=== PATIENT | male | born 1965 | race Caucasian/White ===

== ENCOUNTER 2018-02-05 05:38 | Day surgery (SDC) | payer SELFPAY ==
[2018-02-05] MEDS ORDERED: LR 1,000 ML IV ×2 (06:00→10:45)
[2018-02-05] MEDS ORDERED: ONDANSETRON 4MG/2ML VIAL (J2405) As Ordered (06:05)
[2018-02-05] MEDS ORDERED: LIDOCAINE 2% INJ 100 MG/5 ML SDV (FOR ANES.) As Ordered (06:05)
[2018-02-05] MEDS ORDERED: KETOROLAC 60 MG/2 ML VIAL (J1885) As Ordered (06:05)
[2018-02-05] MEDS ORDERED: ROCURONIUM BROMIDE 50 MG/5 ML VIAL As Ordered ×2 (06:05→09:30)
[2018-02-05] MEDS ORDERED: dexameTHASONE 4 MG/ML 1ML VIAL (J1100) As Ordered (06:05)
[2018-02-05] MEDS ORDERED: PROPOFOL 200 MG/20 ML VIAL As Ordered (06:05)
[2018-02-05] MEDS ORDERED: fentaNYL 250 MCG/5 ML INJECTION (J3010) As Ordered (06:06)
[2018-02-05] MEDS ORDERED: MIDAZOLAM INJ 2 MG/2 ML VIAL (J2250) As Ordered (06:06)
[2018-02-05] MEDS: BUPIVACAINE/EPIN 0.25% 30 ML VIAL As Ordered (09:30)
[2018-02-05] MEDS ORDERED: SUGAMMADEX SODIUM 500 MG/5 ML VIAL (BRIDION) As Ordered (09:53)
[2018-02-05] MEDS ORDERED: fentaNYL 100 MCG/2 ML INJECTION (J3010) As Ordered (10:21)
[2018-02-05] MEDS ORDERED: PERCOCET 5MG/325MG TAB As Ordered (10:21)
[2018-02-05] MEDS: PERCOCET 5MG/325MG TAB PO ×2 (10:25→10:55)
[2018-02-05] MEDS: fentaNYL 100 MCG/2 ML INJECTION (J3010) IV ×4 (10:25→10:42)
[2018-02-05] MEDS ORDERED: METOCLOPRAMIDE INJ 10MG/2ML VIAL (J2765) IV (10:45)
[2018-02-05] MEDS ORDERED: ONDANSETRON 4MG/2ML VIAL (J2405) IV (10:45)
[2018-02-05] MEDS ORDERED: NORCO, ANEXSIA 5/325MG TABLET (HYDROcodone/ACETAMINOPHEN) PO (10:45)
== END 2018-02-05 14:45 | disposition home or self-care (01) ==
LOC: M SDC 05:38
DX: K40.90 Unilateral inguinal hernia, without obstruction or gangrene, not specified as recurrent (principal); K21.9 Gastro-esophageal reflux disease without esophagitis; F41.9 Anxiety disorder, unspecified; F32.9 Major depressive disorder, single episode, unspecified; Z79.899 Other long term (current) drug therapy; F17.220 Nicotine dependence, chewing tobacco, uncomplicated
CPT/HCPCS: 49650

== ENCOUNTER 2020-03-02 18:04 | Inpatient (IN) | payer SELFPAY ==
[~2020-03-02] VITALS: Ht 167.6 cm; Wt 86.9 kg
[~2020-03-02 18:04] MED LIST: AMIT75TA PO; CITA20TA7 PO
--- NOTE | 2020-03-02 18:41 | REPVR ---
PROCEDURE INFORMATION: Exam: XR Chest, 1 View Exam date and time: 03/02/2020 6:34 PM Age: 54 years old Clinical indication: Cough and dyspnea; Additional info: Dyspnea/cough TECHNIQUE: Imaging protocol: XR of the chest Views: 1 view. COMPARISON: No relevant prior studies available. FINDINGS: Lungs: Small patchy infiltrate left lung base may represent atelectasis. A small focus of pneumonitis not excluded. Pleural space: Unremarkable. No pleural effusion. No pneumothorax. Heart/Mediastinum: Unremarkable. No cardiomegaly. Bones/joints: Unremarkable. IMPRESSION: Small patchy infiltrate left lung base may represent atelectasis. A small focus of pneumonitis not excluded. Electronically signed by: Doug Mike On 03/02/2020 18:41:05 PM
[2020-03-02] MEDS ORDERED: ACETAMINOPHEN 325 MG TAB PO ONE (19:00)
[2020-03-02] MEDS ORDERED: NS 1,000 ML IV ONE (19:00)
[2020-03-02 20:00] LABS: BASO % 0.3 % (0.0-1.0); HEMATOCRIT 44.3 % (42.0-52.0); LYMPH # 0.7 10^3/uL (1.5-5.0); LYMPH % 18.6 % (24.0-44.0); MEAN CORPUSCULAR HGB CONC 33.9 g/dl (32.0-36.5); MEAN CORPUSCULAR VOLUME 88.6 fl (80.0-96.0); MONO # 0.3 10^3/uL (0.0-0.8); MONO % 9.1 % (0.0-5.0); NEUTROPHILS # 2.5 10^3/uL (1.5-8.5); NEUTROPHILS % 71.4 % (36.0-66.0); PLATELET COUNT, AUTOMATED 155 10^3/uL (150-450); WHITE BLOOD COUNT 3.5 10^3/uL (4.0-10.0)
[2020-03-02 20:35] LABS: ALBUMIN 3.2 GM/DL (3.2-5.2); ALT/SGPT 42 U/L (12-78); BILIRUBIN,DIRECT 0.1 MG/DL (0.0-0.2); BILIRUBIN,TOTAL 0.4 MG/DL (0.2-1.0); BLOOD UREA NITROGEN 14 MG/DL (7-18); CALCIUM LEVEL 8.1 MG/DL (8.5-10.1); CARBON DIOXIDE LEVEL 33 MEQ/L (21-32); CHLORIDE LEVEL 96 MEQ/L (98-107); CK-MB VALUE MASS < 1.0 NG/ML (<3.6); CPK CREATINE PHOSPHOKINASE 118 U/L (39-308); CREATININE FOR GFR 1.26 MG/DL (0.70-1.30); GLOMERULAR FILTRATION RATE > 60.0 (>56); GLUCOSE, FASTING 101 MG/DL (70-100); MB/CK RELATIVE INDEX 0.85 (< OR =4); NT-PRO BNP 9 PG/ML (<125); POTASSIUM SERUM 3.9 MEQ/L (3.5-5.1); SODIUM LEVEL 135 MEQ/L (136-145); TOTAL PROTEIN 7.2 GM/DL (6.4-8.2); TROPONIN I < 0.02 NG/ML (< 0.10)
--- NOTE | 2020-03-02 23:27 | HPEPDOC ---
General Date of Admission 03/02/20 Date of Service: Mar 02, 2020 Chief Complaint The patient is a 54-year-old male admitted with a reason for visit of Dehydrated. Source: Patient Exam Limitations: No limitations Timing/Duration: Day(s) Severity: Moderate Associated Symptoms: Shortness of breath History of Present Illness Patient's 54 years old male with past medical history of anxiety, depression presented hospital with increased shortness of breath. Patient stated that for 5-6 days he has been having cough with generalized weakness. Today his symptoms became worse. In ER patient was found to have positive test for COVID19. Patient was found to have fever of 100.8, White blood count 3.5, chest x-ray showed Small patchy infiltrate left lung base may represent atelectasis. A small focus of pneumonitis not excluded. Home Medications Scheduled Amitriptyline HCl (Amitriptyline HCl) 75 Mg Tab, 75 MG PO QPM, (Reported) Allergies Coded Allergies: No Known Allergies (Unverified , 03/02/20) Past Medical History Medical History Depression, anxiety Family History I personally reviewed family history And found not pertinent Social History * Smoker: Denies Alcohol: Denies Drugs: denies Patient is Gnosticism A-FIB/CHADSVASC A-FIB History Current/History of A-Fib/PAF?: No Current PO Anticoag Therapy: No Review of Systems Constitutional: Reports: Chills, Fever, Fatigue Eyes: Denies: Pain ENT: Denies: Head Aches Skin: Denies: Rash, Lesions Pulmonary: Reports: Dyspnea, Cough Cardiovascular: Denies: Chest Pain, Palpitations Gastrointestinal: Denies: Nausea, Vomiting Genitourinary: Denies: Dysuria, Frequency Hematologic: Denies: Bruising Endocrine: Denies: Polydipsia, Polyphagia Musculoskeletal: Denies: Neck Pain, Back Pain Neurological: Denies: Weakness Psych: Reports: Mood Normal Physical Examination General Exam: Positive: Alert, Cooperative Eye Exam: Positive: PERRLA ENT Exam: Positive: Atraumatic Neck Exam: Positive: Supple; Negative: JVD Chest Exam: Positive: Rhonchi Heart Exam: Positive: Rate Normal Telemetry: Positive: No significant arrhythmia Abdomen Exam: Positive: Normal bowel sounds Extremity Exam: Negative: Clubbing, Cyanosis Skin Exam: Positive: Nl turgor and temperature Neuro Exam: Positive: Strength at 5/5 X4 ext, Cranial Nerves 3-12 NL Psych Exam: Positive: Mental status NL Vital Signs Vital Signs Date Time Temp Pulse Resp B/P (MAP) Pulse Ox O2 Delivery O2 Flow Rate FiO2 03/02/20 22:49 83 96 Nasal Cannula 2.0 03/02/20 22:19 18 03/02/20 21:30 99.1 03/02/20 20:30 105/64 (78) Laboratory Data Labs 24H Laboratory Tests 2 03/02/20 19:26: Immature Granulocyte % (Auto) 0.6, Neutrophils (%) (Auto) 71.4H, Lymphocytes (%) (Auto) 18.6L, Monocytes (%) (Auto) 9.1H, Eosinophils (%) (Auto) 0.0, Basophils (%) (Auto) 0.3, Neutrophils # (Auto) 2.5, Lymphocytes # (Auto) 0.7L, Monocytes # (Auto) 0.3, Eosinophils # (Auto) 0.0, Basophils # (Auto) 0.0, Nucleated Red Blood Cells % (auto) 0.0, Anion Gap 6L, Glomerular Filtration Rate > 60.0, Lactic Acid Level 1.0, Calcium Level 8.1L, Total Bilirubin 0.4, Direct Bilirubin 0.1, Aspartate Amino Transf (AST/SGOT) 41H, Alanine Aminotransferase (ALT/SGPT) 42, Alkaline Phosphatase 73, Total Creatine Kinase 118, Creatine Kinase MB < 1.0, Creatine Kinase MB Relative Index 0.85, Troponin I < 0.02, CE-Qtc-Q-Type Natriuretic Peptide 9, Total Protein 7.2, Albumin 3.2, Albumin/Globulin Ratio 0.8 03/02/20 20:03: POC Glucose (Misc Panel) 103, POC Sodium (Misc Panel) 134L, POC Potassium (Misc Panel) 3.8, POC Chloride (Misc Panel) 92L, POC Total CO2 (Misc Panel) 31.0H, POC Blood Urea Nitrogen (Misc Panel 15, POC Ionized Calcium (Misc Panel) 4.3L, POC Creatinine (Misc Panel) 1.2, POC Hematocrit (Misc Panel) 46.0 03/02/20 20:06: POC Troponin I (Misc) 0.00 CBC/BMP Laboratory Tests 03/02/20 19:26 Microbiology Microbiology 10/16/20 Respiratory Virus Panel (PCR) ([facility]) - Final, Complete SARS-CoV-2 (COVID 19) 03/02/20 Blood Culture, Received Pending Assessment/Plan Patient's 54 years old male with past medical history of anxiety, depression presented hospital with increased shortness of breath. Patient stated that for 5-6 days he has been having cough with generalized weakness. Today his symptoms became worse. In ER patient was found to have positive test for COVID19. Patient was found to have fever of 100.8, White blood count 3.5, chest x-ray showed Sm all patchy infiltrate left lung base may represent atelectasis. A small focus of pneumonitis not excluded. Problems (1) Community acquired pneumonia Status: Acute Problem Text: Secondary to COVID 19 Patient currently on 2 L oxygen via nasal cannula I talked to Dr. Abdullahi she recommended Remdesevir if CRP and ferritin elevated We'll check CRP and ferritin X-ray showed left lower lobe infiltrate Ceftriaxone IV, azithromycin IV Inhaler Continue to monitor oxygenation Droplet precaution (2) COVID-19 Status: Acute Problem Text: Labs ordered according to COVID19 protocol Decadron Lovenox 40 mg twice a day Plan / VTE VTE Prophylaxis Ordered?: Yes CHERELLE VENEGAS DO Mar 02, 2020 23:27
[2020-03-03] VITALS (10 sets, daily range): BP systolic 89–114; BP diastolic 57–70; O2SAT 96–98
[2020-03-03] MEDS ORDERED: ENOXAPARIN 40MG/0.4ML SYRINGE (J1650 PER 10MG) SC ONE
[2020-03-03] MEDS: AZITHROMYCIN INJ 500 MG, VIAL MATE ADAPTER 1 EACH in D5W 250 ML IV SCH ×2 (00:59→23:16)
[2020-03-03 01:29] LABS: INR 0.99; PROTHROMBIN TIME 13.3 SECONDS (12.5-14.3)
[2020-03-03 01:33] LABS: D-DIMER QUANT 535.77 ng/ml (<500)
[2020-03-03] MEDS: ACETAMINOPHEN TAB 650MG DOSE (2X325MG) PO PRN ×2 (02:36→16:49)
[2020-03-03] MEDS: cefTRIAXone SOD 1 GM in D5W MINI-BAG PLUS 50 ML IV SCH (02:36)
[2020-03-03] MEDS ORDERED: diphenhydrAMINE 25MG CAP PO ONE (03:00)
[2020-03-03 03:03] LABS: APPEARANCE, URINE CLEAR (CLEAR); BACTERIA, URINE AUTO NEGATIVE (NEGATIVE); BILIRUBIN, URINE AUTO NEGATIVE (NEGATIVE); BLOOD, URINE BLOOD NEGATIVE (NEGATIVE); COLOR, URINE YELLOW (YELLOW); GLUCOSE, URINE (UA) AUTO NEGATIVE (NEGATIVE); KETONE, URINE AUTO NEGATIVE (NEGATIVE); LEUKOCYTE ESTERASE, URINE AUTO NEGATIVE (NEGATIVE); NITRITE, URINE AUTO NEGATIVE (NEGATIVE); PROTEIN, URINE AUTO 1+ mg/dL (NEGATIVE); RBC, URINE AUTO 0 /HPF (0-3); SPECIFIC GRAVITY URINE AUTO 1.011 (1.002-1.035); SQUAMOUS EPITHELIAL CELL UR AU 0 /HPF (0-6); UROBILINOGEN, URINE AUTO 0.2 mg/dL (0.0-2.0); WBC, URINE AUTO 1 /HPF (0-3)
[2020-03-03 03:10] LABS: ALBUMIN 2.9 GM/DL (3.2-5.2); ALT/SGPT 34 U/L (12-78); BILIRUBIN,DIRECT 0.1 MG/DL (0.0-0.2); BILIRUBIN,TOTAL 0.3 MG/DL (0.2-1.0); CK-MB VALUE MASS < 1.0 NG/ML (<3.6); CPK CREATINE PHOSPHOKINASE 102 U/L (39-308); FERRITIN 530 NG/ML (26-388); LDH LACTATE DEHYDROGENASE 259 U/L (87-241); MB/CK RELATIVE INDEX 0.98 (< OR =4); NT-PRO BNP 14 PG/ML (<125); TOTAL PROTEIN 6.4 GM/DL (6.4-8.2); TRIGLYCERIDES LEVEL 71 MG/DL (<150); TROPONIN I < 0.02 NG/ML (< 0.10)
[2020-03-03] MEDS ORDERED: IBUPROFEN 200MG TAB PO ONE (07:00)
--- NOTE | 2020-03-03 08:05 | ECGEPIP ---
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
[2020-03-03 08:06] LABS: HEMATOCRIT 41.3 % (42.0-52.0); HEMOGLOBIN 14.4 g/dl (13.5-17.5); LYMPH % 16.6 % (24.0-44.0); MEAN CORPUSCULAR HEMOGLOBIN 30.9 pg (27.0-33.0); MEAN CORPUSCULAR HGB CONC 34.9 g/dl (32.0-36.5); MEAN CORPUSCULAR VOLUME 88.6 fl (80.0-96.0); PLATELET COUNT, AUTOMATED 146 10^3/uL (150-450); RED BLOOD COUNT 4.66 10^6/uL (4.30-6.10); WHITE BLOOD COUNT 4.3 10^3/uL (4.0-10.0)
[2020-03-03 08:07] LABS: BASO % 0.2 % (0.0-1.0); EOS % 0.2 % (0.0-3.0); LYMPH # 0.7 10^3/uL (1.5-5.0); MONO # 0.2 10^3/uL (0.0-0.8); NEUTROPHILS # 3.4 10^3/uL (1.5-8.5)
[2020-03-03 08:19] LABS: INR 1.02; PROTHROMBIN TIME 13.6 SECONDS (12.5-14.3)
[2020-03-03 08:20] LABS: PARTIAL THROMBOPLASTIN TIME 40.9 SECONDS (24.2-38.5)
[2020-03-03 08:25] LABS: ALBUMIN 2.7 GM/DL (3.2-5.2); ALT/SGPT 35 U/L (12-78); BILIRUBIN,DIRECT 0.1 MG/DL (0.0-0.2); BILIRUBIN,TOTAL 0.3 MG/DL (0.2-1.0); BLOOD UREA NITROGEN 11 MG/DL (7-18); CALCIUM LEVEL 7.3 MG/DL (8.5-10.1); CARBON DIOXIDE LEVEL 27 MEQ/L (21-32); CHLORIDE LEVEL 102 MEQ/L (98-107); CREATININE FOR GFR 1.04 MG/DL (0.70-1.30); FERRITIN 565 NG/ML (26-388); GLOMERULAR FILTRATION RATE > 60.0 (>56); GLUCOSE, FASTING 100 MG/DL (70-100); MAGNESIUM LEVEL 2.6 MG/DL (1.8-2.4); NT-PRO BNP 45 PG/ML (<125); POTASSIUM SERUM 3.8 MEQ/L (3.5-5.1); SODIUM LEVEL 136 MEQ/L (136-145); TOTAL PROTEIN 6.1 GM/DL (6.4-8.2)
[2020-03-03] MEDS: ENOXAPARIN 40MG/0.4ML SYRINGE (J1650 PER 10MG) SC SCH ×2 (09:00→20:07)
[2020-03-03] MEDS: dexameTHASONE 4 MG/ML 1ML VIAL (J1100 PER 1MG) IV SCH (09:00)
--- NOTE | 2020-03-03 13:27 | IPNPDOC ---
Text Note Date of Service The patient was seen on 03/03/20. NOTE Subjective: -No acute complaints -On 2L saturating well and desats to low 80s with ambulation -Walking around room Physical Examination General: Alert, Cooperative Eye: PERRLA, EOMI, anicteric ENT: Atraumatic, MMM Neck: no JVD Chest: Crackles throughout, rhonchi as well, no wheezing at this time Heart: RRR, no mrg Abdomen: Normal bowel sounds, soft, NTND Extremities: WWP, no LE edema Skin: Nl turgor and temperature, no rashes Neuro: Strength at 5/5 X4 ext, Cranial Nerves 3-12 NL, normal gait Psych: Aox3 Laboratory Data: Reviewed. See below for full details WBC 4.3 Hgb 14.4 platelets 146 na 136 K 3.8 Cr 1.04 fibrinogen 470 aPTT 40.9 Ferritin 565 Microbiology 03/02/20 Respiratory Virus Panel (PCR) ([facility]) - Final, Complete SARS-CoV-2 (COVID 19) 03/02/20 Blood Culture, NGTD Assessment 54 years old M with past medical history of anxiety and depression who presented hospital with increased shortness of breath over 5-6 days with a cough with generalized weakness and found to have COVID19 PNA. Plan COVID 19 PNA: -Supplemental O2 - currently on 2 L oxygen via nasal cannula -Dr. Abdullahi she recommended Remdesevir if CRP and ferritin sharply rise -f/u covid-19 associated labs -X-ray showed left lower lobe infiltrate -continue Ceftriaxone IV, azithromycin IV -continue mdis -Continuous pulse ox -Droplet precaution -dex 6mg QD -Lovenox 40 mg twice a day Dispo: inpatient VS,Gabriele, I+O VS, Gabriele, I+O Laboratory Tests 03/02/20 19:26 03/03/20 07:36 Vital Signs Date Time Temp Pulse Resp B/P (MAP) Pulse Ox O2 Delivery O2 Flow Rate FiO2 03/03/20 12:18 2.0 03/03/20 12:00 98.3 95 17 106/63 (77) 95 Nasal Cannula I&O- Last 24 Hours up to 6 AM 03/03/20 06:00 Intake Total 1305 ml Output Total 150 ml Balance 1155 ml CARROLL PRAKASH MD Mar 03, 2020 13:27
[2020-03-03] MEDS: CALCIUM CARBONATE 500 MG CHEW U/D PO PRN (16:36)
[2020-03-03] MEDS ORDERED: NS 1,000 ML IV ONE (17:30)
[2020-03-03] MEDS ORDERED: IBUPROFEN 400 MG TAB PO ONE (18:30)
[2020-03-03] MEDS: AMITRIPTYLINE 25 MG TAB PO SCH (20:06)
[2020-03-04] VITALS (9 sets, daily range): BP systolic 90–111; BP diastolic 55–68; O2SAT 92–100
[2020-03-04] MEDS: cefTRIAXone SOD 1 GM in D5W MINI-BAG PLUS 50 ML IV SCH (00:33)
--- NOTE | 2020-03-04 05:41 | ECGEPIP ---
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
[2020-03-04 07:07] LABS: HEPATITIS B CORE ANTIBODY IGG Negative (Negative)
[2020-03-04 07:47] LABS: BASO % 0.1 % (0.0-1.0); HEMATOCRIT 43.4 % (42.0-52.0); HEMOGLOBIN 14.4 g/dl (13.5-17.5); LYMPH # 0.8 10^3/uL (1.5-5.0); LYMPH % 11.2 % (24.0-44.0); MEAN CORPUSCULAR HEMOGLOBIN 30.1 pg (27.0-33.0); MEAN CORPUSCULAR HGB CONC 33.2 g/dl (32.0-36.5); MEAN CORPUSCULAR VOLUME 90.6 fl (80.0-96.0); MONO # 0.5 10^3/uL (0.0-0.8); MONO % 7.2 % (0.0-5.0); NEUTROPHILS # 5.7 10^3/uL (1.5-8.5); NEUTROPHILS % 81.1 % (36.0-66.0); PLATELET COUNT, AUTOMATED 176 10^3/uL (150-450); RED BLOOD COUNT 4.79 10^6/uL (4.30-6.10)
[2020-03-04 07:57] LABS: INR 0.9; PROTHROMBIN TIME 12.3 SECONDS (12.5-14.3)
[2020-03-04 08:29] LABS: ALBUMIN 2.8 GM/DL (3.2-5.2); ALT/SGPT 33 U/L (12-78); BILIRUBIN,DIRECT 0.1 MG/DL (0.0-0.2); BILIRUBIN,TOTAL 0.4 MG/DL (0.2-1.0); BLOOD UREA NITROGEN 10 MG/DL (7-18); CALCIUM LEVEL 8.1 MG/DL (8.5-10.1); CARBON DIOXIDE LEVEL 29 MEQ/L (21-32); CHLORIDE LEVEL 105 MEQ/L (98-107); CREATININE FOR GFR 1.01 MG/DL (0.70-1.30); FERRITIN 728 NG/ML (26-388); GLOMERULAR FILTRATION RATE > 60.0 (>56); GLUCOSE, FASTING 131 MG/DL (70-100); MAGNESIUM LEVEL 2.6 MG/DL (1.8-2.4); NT-PRO BNP 110 PG/ML (<125); POTASSIUM SERUM 4.7 MEQ/L (3.5-5.1); SODIUM LEVEL 139 MEQ/L (136-145); TOTAL PROTEIN 6.7 GM/DL (6.4-8.2)
[2020-03-04] MEDS: dexameTHASONE 4 MG/ML 1ML VIAL (J1100 PER 1MG) IV SCH (08:29)
[2020-03-04] MEDS: ENOXAPARIN 40MG/0.4ML SYRINGE (J1650 PER 10MG) SC SCH ×2 (08:30→19:35)
--- NOTE | 2020-03-04 10:39 | IPNPDOC ---
Text Note Date of Service The patient was seen on 03/04/20. NOTE Subjective: -No acute complaints -On 2L saturating well Objective: Physical Examination General: Alert, Cooperative Eye: PERRLA, EOMI, anicteric ENT: Atraumatic, MMM Neck: no JVD Chest: Crackles throughout, no wheezing at this time, speaking in full sentences, on 2L NC, episodic wet cough Heart: RRR, no mrg Abdomen: Normal bowel sounds, soft, NTND Extremities: WWP, no LE edema Skin: Nl turgor and temperature, no rashes Neuro: Strength at 5/5 X4 ext, Cranial Nerves 3-12 NL, normal gait Psych: Aox3 Laboratory Data: Reviewed. See below for full details WBC 7 Hgb 14.4 platelets 176 fibrinogen 505 BMP pending Microbiology 03/02/20 Respiratory Virus Panel (PCR) ([facility]) - Final, Complete SARS-CoV-2 (COVID 19) 03/02/20 Blood Culture, NGTD Assessment 54 years old M with past medical history of anxiety and depression who presented hospital with increased shortness of breath over 5-6 days with a cough with generalized weakness and found to have COVID19 PNA. Plan COVID 19 PNA: -Supplemental O2 - currently on 2 L oxygen via nasal cannula -Dr. Abdullahi recommended Remdesevir if CRP and ferritin sharply rise, thus far closely monitoring -f/u covid-19 associated labs -X-ray showed left lower lobe infiltrate -continue Ceftriaxone IV, azithromycin IV, day 2 -continue mdis -Continuous pulse ox -Droplet precaution -dex 6mg IV QD, day 2 -Lovenox 40 mg twice a day Dispo: inpatient. Doing cautiously well at this time. Is on/off O2 at most 2L thus far. Monitoring. VS,Fishbone, I+O VS, Fishbone, I+O Laboratory Tests 03/04/20 07:24 Vital Signs Date Time Temp Pulse Resp B/P (MAP) Pulse Ox O2 Delivery O2 Flow Rate FiO2 03/04/20 04:05 96.5 53 18 96/61 (73) 100 Nasal Cannula 2.0 I&O- Last 24 Hours up to 6 AM 03/04/20 06:00 Intake Total 3165 ml Output Total 1225 ml Balance 1940 ml CARROLL PRAKASH MD Mar 04, 2020 08:27
[2020-03-04] MEDS: ACETAMINOPHEN TAB 650MG DOSE (2X325MG) PO PRN (18:33)
[2020-03-04] MEDS: AMITRIPTYLINE 25 MG TAB PO SCH (19:35)
[2020-03-04] MEDS: AZITHROMYCIN INJ 500 MG, VIAL MATE ADAPTER 1 EACH in D5W 250 ML IV SCH (23:21)
[2020-03-05] VITALS (8 sets, daily range): BP systolic 98–142; BP diastolic 55–70; O2SAT 91–94
[2020-03-05] MEDS: cefTRIAXone SOD 1 GM in D5W MINI-BAG PLUS 50 ML IV SCH (00:32)
[2020-03-05] MEDS: ALBUTEROL 90 MCG/ACT 8GM HFA INHALER INH PRN ×2 (05:39→13:39)
[2020-03-05 06:47] LABS: BASO % 0.1 % (0.0-1.0); HEMATOCRIT 41.6 % (42.0-52.0); HEMOGLOBIN 14.1 g/dl (13.5-17.5); LYMPH # 1.4 10^3/uL (1.5-5.0); LYMPH % 10.1 % (24.0-44.0); MEAN CORPUSCULAR HEMOGLOBIN 30.5 pg (27.0-33.0); MEAN CORPUSCULAR HGB CONC 33.9 g/dl (32.0-36.5); MONO # 0.6 10^3/uL (0.0-0.8); NEUTROPHILS # 11.7 10^3/uL (1.5-8.5); NEUTROPHILS % 84.6 % (36.0-66.0); PLATELET COUNT, AUTOMATED 232 10^3/uL (150-450); RED BLOOD COUNT 4.62 10^6/uL (4.30-6.10); WHITE BLOOD COUNT 13.8 10^3/uL (4.0-10.0)
[2020-03-05 06:57] LABS: INR 0.92; PROTHROMBIN TIME 12.5 SECONDS (12.5-14.3)
[2020-03-05 06:58] LABS: PARTIAL THROMBOPLASTIN TIME 32.5 SECONDS (24.2-38.5)
[2020-03-05 07:17] LABS: ALBUMIN 2.7 GM/DL (3.2-5.2); ALT/SGPT 56 U/L (12-78); BILIRUBIN,DIRECT < 0.1 MG/DL (0.0-0.2); BILIRUBIN,TOTAL 0.2 MG/DL (0.2-1.0); BLOOD UREA NITROGEN 11 MG/DL (7-18); CALCIUM LEVEL 7.8 MG/DL (8.5-10.1); CARBON DIOXIDE LEVEL 27 MEQ/L (21-32); CHLORIDE LEVEL 106 MEQ/L (98-107); CREATININE FOR GFR 1.05 MG/DL (0.70-1.30); FERRITIN 712 NG/ML (26-388); GLOMERULAR FILTRATION RATE > 60.0 (>56); GLUCOSE, FASTING 145 MG/DL (70-100); MAGNESIUM LEVEL 2.1 MG/DL (1.8-2.4); NT-PRO BNP 195 PG/ML (<125); POTASSIUM SERUM 4.1 MEQ/L (3.5-5.1); SODIUM LEVEL 140 MEQ/L (136-145); TOTAL PROTEIN 6.5 GM/DL (6.4-8.2)
[2020-03-05] MEDS: dexameTHASONE 4 MG/ML 1ML VIAL (J1100 PER 1MG) IV SCH (08:25)
[2020-03-05] MEDS: ENOXAPARIN 40MG/0.4ML SYRINGE (J1650 PER 10MG) SC SCH (08:26)
[2020-03-05 11:49] LABS: HEPATITIS B SURFACE ANTIGEN NEGATIVE (NEGATIVE)
[2020-03-05 12:17] LABS: HIV 1&2 SCREEN CENTAUR NEGATIVE (NEGATIVE)
--- NOTE | 2020-03-05 13:05 | IPNPDOC ---
Text Note Date of Service The patient was seen on 03/05/20. NOTE Patient was seen and examined this morning.. He continues to be on 2 L of nasal cannula , states that he feels better and wants to go home Physical Examination General: Alert, Cooperative Eye: PERRLA, EOMI, anicteric ENT: Atraumatic, MMM Neck: no JVD Chest: Crackles throughout, no wheezing at this time, speaking in full sentences, on 2L NC, episodic wet cough Heart: RRR, no mrg Abdomen: Normal bowel sounds, soft, NTND Extremities: WWP, no LE edema Skin: Nl turgor and temperature, no rashes Neuro: Strength at 5/5 X4 ext, Cranial Nerves 3-12 NL, normal gait Psych: Aox3 Labs reviewed Radiology reviewed Assessment and plan He is a 54 years old M with past medical history of anxiety and depression who presented hospital with increased shortness of breath over 5-6 days with a cough with generalized weakness and found to have COVID19 PNA. 1. COVID 19 PNA: Continue supplemental oxygen and wean as required. Ferritin and CRP have been flat trend. No need of repeating as the patient is clinically improving. He is on Rocephin and azithromycin day 3. We will continue for 1 more day. Continue pulse ox. Dexamethasone 6 mg daily day 3. We will taper down tomorrow if he continues to improve. Lovenox has been de-escalate the only prophylactic dose of 40 daily. No need of full dose and accommodation. Possible discharge in the next 24-48 hours if he has been afebrile and being off the oxygen. VS,Fishbone, I+O VS, Fishbone, I+O Laboratory Tests 03/05/20 06:23 Vital Signs Date Time Temp Pulse Resp B/P (MAP) Pulse Ox O2 Delivery O2 Flow Rate FiO2 03/05/20 12:00 98.0 77 20 111/69 (83) 90 Room Air 03/05/20 08:00 2.0 I&O- Last 24 Hours up to 6 AM 03/05/20 06:00 Intake Total 1265 ml Output Total 1975 ml Balance -710 ml LULA CASAREZ MD Mar 05, 2020 13:05
[2020-03-05] MEDS: AMITRIPTYLINE 25 MG TAB PO SCH (20:09)
[2020-03-05] MEDS: AZITHROMYCIN INJ 500 MG, VIAL MATE ADAPTER 1 EACH in D5W 250 ML IV SCH (23:51)
[2020-03-06] VITALS (9 sets, daily range): BP systolic 101–114; BP diastolic 52–74; O2SAT 87–97
[2020-03-06] MEDS: cefTRIAXone SOD 1 GM in D5W MINI-BAG PLUS 50 ML IV SCH (01:18)
[2020-03-06 07:45] LABS: BASO % 0.2 % (0.0-1.0); HEMATOCRIT 41.5 % (42.0-52.0); LYMPH # 1.2 10^3/uL (1.5-5.0); LYMPH % 9.4 % (24.0-44.0); MEAN CORPUSCULAR HEMOGLOBIN 29.8 pg (27.0-33.0); MEAN CORPUSCULAR HGB CONC 33.7 g/dl (32.0-36.5); MEAN CORPUSCULAR VOLUME 88.3 fl (80.0-96.0); MONO # 0.9 10^3/uL (0.0-0.8); MONO % 6.9 % (0.0-5.0); NEUTROPHILS # 10.8 10^3/uL (1.5-8.5); NEUTROPHILS % 81.5 % (36.0-66.0); PLATELET COUNT, AUTOMATED 269 10^3/uL (150-450); WHITE BLOOD COUNT 13.2 10^3/uL (4.0-10.0)
[2020-03-06 08:00] LABS: INR 0.92; PROTHROMBIN TIME 12.5 SECONDS (12.5-14.3)
[2020-03-06 08:01] LABS: PARTIAL THROMBOPLASTIN TIME 28.1 SECONDS (24.2-38.5)
[2020-03-06 08:13] LABS: ALBUMIN 2.6 GM/DL (3.2-5.2); ALT/SGPT 111 U/L (12-78); BILIRUBIN,DIRECT 0.1 MG/DL (0.0-0.2); BILIRUBIN,TOTAL 0.4 MG/DL (0.2-1.0); BLOOD UREA NITROGEN 14 MG/DL (7-18); CALCIUM LEVEL 8.4 MG/DL (8.5-10.1); CARBON DIOXIDE LEVEL 25 MEQ/L (21-32); CHLORIDE LEVEL 106 MEQ/L (98-107); CREATININE FOR GFR 0.96 MG/DL (0.70-1.30); FERRITIN 729 NG/ML (26-388); GLOMERULAR FILTRATION RATE > 60.0 (>56); GLUCOSE, FASTING 97 MG/DL (70-100); NT-PRO BNP 127 PG/ML (<125); POTASSIUM SERUM 4.3 MEQ/L (3.5-5.1); SODIUM LEVEL 140 MEQ/L (136-145); TOTAL PROTEIN 6.6 GM/DL (6.4-8.2)
[2020-03-06] MEDS: ENOXAPARIN 40MG/0.4ML SYRINGE (J1650 PER 10MG) SC SCH (08:29)
[2020-03-06] MEDS: ALBUTEROL 90 MCG/ACT 8GM HFA INHALER INH PRN (09:23)
[2020-03-06] MEDS: dexameTHASONE 4 MG/ML 1ML VIAL (J1100 PER 1MG) IV SCH ×3 (10:26→22:41)
[2020-03-06] MEDS ORDERED: FUROSEMIDE 20MG/2ML VIAL (J1940) IV ONE (11:00)
[2020-03-06] MEDS ORDERED: SODIUM CHLORIDE 0.9% INJ 10 ML SYR IV ONE ×2 (12:00)
--- NOTE | 2020-03-06 12:00 | IPNPDOC ---
Text Note Date of Service The patient was seen on 03/06/20. NOTE Patient was seen and examined this morning. He has worsening hypoxic respiratory failure and currently is on 10 L high flow. He states his coughing is also increased Physical Examination General: Alert, Cooperative Eye: PERRLA, EOMI, anicteric ENT: Atraumatic, MMM Neck: no JVD Chest: Crackles throughout, no wheezing at this time, speaking in full sentences, on 2L NC, episodic wet cough Heart: RRR, no mrg Abdomen: Normal bowel sounds, soft, NTND Extremities: WWP, no LE edema Skin: Nl turgor and temperature, no rashes Neuro: Strength at 5/5 X4 ext, Cranial Nerves 3-12 NL, normal gait Psych: Aox3 Labs reviewed Radiology reviewed Assessment and plan He is a 54 years old M with past medical history of anxiety and depression who presented hospital with increased shortness of breath over 5-6 days with a cough with generalized weakness and found to have COVID19 PNA. 1. COVID 19 PNA: Worsening. Currently on 10 L of high flow nasal cannula. Ferritin and CRP have been flat trend. Given his increasing hypoxemia. He will be started on remdesevir 200 loading dose and then 100 daily for total of 5 days for now and which she'll be reassessed in case he needs more than 5 days. Lasix 20 mg IV given. 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 He is also on Rocephin and azithromycin day 4. We will continue for 1 more day. Continue pulse ox. Dexamethasone 2 mg every 6 started. We will taper down tomorrow once he continues to improve. Lovenox has been de-escalate the only prophylactic dose of 40 daily. No need of full dose . Disposition. Unknown at this time VS,Fishbone, I+O VS, Fishbone, I+O Laboratory Tests 03/06/20 07:15 Vital Signs Date Time Temp Pulse Resp B/P (MAP) Pulse Ox O2 Delivery O2 Flow Rate FiO2 03/06/20 09:20 92 High Flow Cannula 12.0 03/06/20 09:00 50 03/06/20 08:30 97.9 74 22 102/52 (69) I&O- Last 24 Hours up to 6 AM 03/06/20 06:00 Intake Total 1145 ml Output Total 1975 ml Balance -830 ml KICHLOO,LULA A. MD Mar 06, 2020 12:00
[2020-03-06] MEDS: REMDESIVIR (INVESTIGATIONAL) 200 MG in NS 210 ML IV ONE ×2 (12:47→20:33)
[2020-03-06] MEDS: AMITRIPTYLINE 25 MG TAB PO SCH (20:40)
[2020-03-07] VITALS (8 sets, daily range): BP systolic 106–120; BP diastolic 63–72; O2SAT 90–94
[2020-03-07] MEDS: AZITHROMYCIN INJ 500 MG, VIAL MATE ADAPTER 1 EACH in D5W 250 ML IV SCH ×2 (00:50→22:53)
[2020-03-07] MEDS: cefTRIAXone SOD 1 GM in D5W MINI-BAG PLUS 50 ML IV SCH (02:38)
[2020-03-07] MEDS: dexameTHASONE 4 MG/ML 1ML VIAL (J1100 PER 1MG) IV SCH ×2 (03:27→09:49)
--- NOTE | 2020-03-07 07:19 | IPNPDOC ---
Text Note Date of Service The patient was seen on 03/07/20. NOTE Subjective: Patient was seen and examined this morning at bedside. Patient tells me that his breathing feels like it's getting a little worse than yesterday. He hasn't been using his incentive spirometer. I had a lengthy conversation with him today about goals of care and CODE STATUS. Patient decided he would like to try BiPAP if needed but does not wish to be resuscitated or intubated. A molst form was completed today. Tells me has been trying to walk around his room but he becomes very short of breath when he does. Objective: Constitutional: Awake and alert, in no apparent distress. On 12 L of high flow oxygen ENT: Sclera are clear Respiratory: Lungs diminished breath sounds bilaterally with some mild crackles at bases. No respiratory distress. No use of accessory muscles. Cardiovascular: RRR S1 and S2 are normal, no murmur Gastrointestinal: Abdomen is soft, non distended, non tender, BS present. Musculoskeletal: RUE 5/5, LUE 5/5, BLE 5/5 no lower extremity edema Neurologic: No focal neurological deficit. Mental Status: A&O x3, normal affect Skin: Warm, dry Assessment/plan: 54 years old M with past medical history of anxiety and depression who presented hospital with increased shortness of breath over 5-6 days with a cough with generalized weakness and found to have COVID19 PNA. # COIVD 19 PNA: sepsis on admission in the setting of covid pna. Rocephin & Azithromycin. Per Palm recs switched dexamethasone to hydrocortisone 50mg q8h and back on therapeutic Lovenox 40 BID. started on remdesevir 200 loading dose then 100qd for 5 day. Repeat CRP, d-dimer, obtain troponin. CXR and ABG pending. IV lasix pushes PRN to keep him on flash drier operator side. Albuterol scheduled. # Acute hypoxic respiratory failure: O2 sat 84% on admission with increasing oxygen demands. Continuous pulse ox. Pulmonology consulted. Incentive spirometry. Percocet help with breathing pain to encourage ambulation. On 12 L h igh flow oxygen. A Yousef Hospitalist VS,Praveen, I+O VS, Gabriele, I+O Vital Signs Date Time Temp Pulse Resp B/P (MAP) Pulse Ox O2 Delivery O2 Flow Rate FiO2 03/07/20 04:00 90 High Flow Cannula 12.0 03/07/20 03:32 96.6 61 20 120/72 (88) 03/06/20 09:00 50 I&O- Last 24 Hours up to 6 AM 03/07/20 06:00 Intake Total 2385 ml Output Total 2475 ml Balance -90 ml JAIR COLES MD Mar 07, 2020 07:19
[2020-03-07] MEDS: ENOXAPARIN 40MG/0.4ML SYRINGE (J1650 PER 10MG) SC SCH ×2 (09:49→20:19)
[2020-03-07] MEDS ORDERED: SODIUM CHLORIDE 0.9% INJ 10 ML SYR IV SCH ×3 (11:00→22:00)
[2020-03-07 11:47] LABS: BASO # 0.1 10^3/uL (0.0-0.2); BASO % 0.9 % (0.0-1.0); HEMOGLOBIN 13.8 g/dl (13.5-17.5); LYMPH # 1.1 10^3/uL (1.5-5.0); LYMPH % 9.1 % (24.0-44.0); MEAN CORPUSCULAR HGB CONC 33.7 g/dl (32.0-36.5); MEAN CORPUSCULAR VOLUME 89.1 fl (80.0-96.0); MONO # 0.8 10^3/uL (0.0-0.8); MONO % 6.6 % (0.0-5.0); NEUTROPHILS # 9.9 10^3/uL (1.5-8.5); NEUTROPHILS % 79.1 % (36.0-66.0); PLATELET COUNT, AUTOMATED 331 10^3/uL (150-450); WHITE BLOOD COUNT 12.5 10^3/uL (4.0-10.0)
[2020-03-07 11:58] LABS: INR 0.94; PARTIAL THROMBOPLASTIN TIME 26.9 SECONDS (24.2-38.5); PROTHROMBIN TIME 12.8 SECONDS (12.5-14.3)
[2020-03-07] MEDS ORDERED: REMDESIVIR (INVESTIGATIONAL) 100 MG in NS 230 ML IV SCH ×2 (12:00→21:00)
[2020-03-07] MEDS ORDERED: SODIUM CHLORIDE NASAL 0.65% SPRAY BTL (OCEAN) PRN (14:30)
[2020-03-07 14:50] LABS: ABG BASE EXCESS -1.7 (-2.0-2.0); ABG O2 SATURATION 92.3 % (95.0-99.0); ABG PARTIAL PRESSURE CO2 30.3 mmHg (35.0-45.0); ABG PARTIAL PRESSURE O2 62.6 mmHg (75.0-100.0); ABG STANDARD HCO3 22.9 MEQ/L (22.0-26.0); ABG TOTAL CO2 21.9 MEQ/L (22.0-29.0); ABG pH (ARTERIAL) 7.458 UNITS (7.350-7.450)
[2020-03-07 15:12] LABS: ALBUMIN 2.7 GM/DL (3.2-5.2); ALT/SGPT 228 U/L (12-78); BILIRUBIN,DIRECT 0.2 MG/DL (0.0-0.2); BILIRUBIN,TOTAL 0.5 MG/DL (0.2-1.0); BLOOD UREA NITROGEN 20 MG/DL (7-18); C REACTIVE PROTEIN QUANTITATIV 2.11 MG/DL (0.00-0.30); CALCIUM LEVEL 8.6 MG/DL (8.5-10.1); CARBON DIOXIDE LEVEL 24 MEQ/L (21-32); CHLORIDE LEVEL 104 MEQ/L (98-107); CREATININE FOR GFR 0.91 MG/DL (0.70-1.30); FERRITIN 861 NG/ML (26-388); GLOMERULAR FILTRATION RATE > 60.0 (>56); GLUCOSE, FASTING 112 MG/DL (70-100); MAGNESIUM LEVEL 2.1 MG/DL (1.8-2.4); NT-PRO BNP 51 PG/ML (<125); POTASSIUM SERUM 4.4 MEQ/L (3.5-5.1); SODIUM LEVEL 137 MEQ/L (136-145); TOTAL PROTEIN 6.7 GM/DL (6.4-8.2); TROPONIN I < 0.02 NG/ML (< 0.10)
[2020-03-07] MEDS: ASPIRIN 81 MG ENTERIC TAB PO SCH (15:21)
[2020-03-07] MEDS: HYDROCORTISONE 100 MG/2 ML VIAL (J1720 PER 1) IV SCH ×2 (15:21→22:52)
[2020-03-07] MEDS: PERCOCET 5MG/325MG TAB PO PRN ×2 (15:22→20:42)
--- NOTE | 2020-03-07 16:12 | REP ---
INDICATION: COVID PNA COMPARISON: 03/02/2020 TECHNIQUE: Portable upright AP view of the chest FINDINGS: Mediastinum and cardiac silhouette are normal. Diffuse subtle bilateral reticulonodular infiltrates are appreciated and appear increased from prior examination. No focal consolidation. No obvious effusion. No pneumothorax. IMPRESSION: Scattered bilateral small infiltrates (left greater than right). <Electronically signed by Roge Hammonds > 03/07/20 0713
[2020-03-07 17:14] LABS: D-DIMER QUANT 596.22 ng/ml (<500)
[2020-03-07] MEDS: ALBUTEROL 90 MCG/ACT 8GM HFA INHALER INH SCH ×2 (19:46→20:17)
[2020-03-07] MEDS: AMITRIPTYLINE 25 MG TAB PO SCH (20:18)
[2020-03-07] MEDS: CALCIUM CARBONATE 500 MG CHEW U/D PO PRN (20:41)
[2020-03-08] VITALS: O2SAT 95
[2020-03-08] MEDS: ALBUTEROL 90 MCG/ACT 8GM HFA INHALER INH SCH ×5 (00:18→16:03)
[2020-03-08] MEDS: cefTRIAXone SOD 1 GM in D5W MINI-BAG PLUS 50 ML IV SCH (00:55)
[2020-03-08 01:27] VITALS: BP 108/70
[2020-03-08 04:00] VITALS: O2SAT 94
[2020-03-08] MEDS: HYDROCORTISONE 100 MG/2 ML VIAL (J1720 PER 1) IV SCH ×2 (06:12→16:41)
[2020-03-08 07:01] LABS: HEMATOCRIT 40.9 % (42.0-52.0); HEMOGLOBIN 13.9 g/dl (13.5-17.5); MEAN CORPUSCULAR HEMOGLOBIN 30.5 pg (27.0-33.0); MEAN CORPUSCULAR VOLUME 89.7 fl (80.0-96.0); PLATELET COUNT, AUTOMATED 381 10^3/uL (150-450); RED BLOOD COUNT 4.56 10^6/uL (4.30-6.10)
--- NOTE | 2020-03-08 07:08 | CR ---
DATE OF CONSULTATION: 03/07/2020 HISTORY OF PRESENT ILLNESS: Mr. Weinstein is a 54-year-old male with a past medical history of anxiety, depression and obesity who presented to the hospital with shortness of breath and cough. The patient noticed symptoms starting approximately five days prior to admission to the hospital of cough with generalized weakness as well as some subjective fevers and shortness of breath. He had worsening dyspnea and so had presented to the ED for evaluation. In the ED, the patient was febrile and noted to be positive for COVID-19. He was also hypoxic, requiring two liters nasal cannula oxygen supplementation. He was started on antibiotics for a possible superimposed bacterial pneumonia with ceftriaxone and azithromycin as well as dexamethasone given his hypoxia. The patient did have elevated CRP and ferritin although not severe. He was initially stable on his two liters nasal cannula oxygen for four days or so. Yesterday, he started having increasing oxygen requirements and he was started on remdesivir. The patient states in the past day or so, he has started having more dyspnea particularly with minimal exertion and he stated he has continued to also have episodes of chest pain which he states he did have at home but has been worsening in the midsternal region particularly when he would get up or attempt to ambulate around the room. He also notices the pain with coughing as well as a deep inspiration and he admits that he has not been using his incentive spirometer or active much in the room given his symptoms. He was trying to prone himself for a little bit during the day today. However, he states he does have difficulty due to neck discomfort as well as propping his head up with proning. PAST MEDICAL AND SURGICAL HISTORY: 1. Depression. 2. Anxiety. HOME MEDICATIONS: * Amitriptyline. ALLERGIES: No known drug allergies. SOCIAL HISTORY: The patient denies a history of alcohol use or nicotine use. He is Muslim. FAMILY HISTORY: Reviewed and no pertinent family history. PHYSICAL EXAMINATION: Vitals: Temperature 97.1. The patient was febrile for the first two days of admission and since then has been afebrile. Pulse72, respirations 24, blood pressure 106/63, O2 sat 9% on 12 liters a minute nasal cannula, in 3.2 liters, out 2.4 liters, negative 150 mL. General: Patient is an obese male, is lying in bed, is able to speak in complete sentences, does not appear to be using any accessory muscles for respiration. HEENT: Normocephalic, atraumatic. Most mucous membranes noted, Mallampati class 4. Neck: Supple, trachea is midline, no palpable cervical adenopathy. No JVD. Cardiovascular: Regular rate and rhythm, normal S1, S2, unable to appreciate any murmurs. Pulmonary: Diminished breath sounds bilaterally with a few rhonchi and crackles in the bases. Abdomen: Obese, soft, nontender, nondistended, no palpable hepatomegaly. Extremities: There is no lower extremity edema noted bilaterally. There is no calf tenderness bilaterally. LABORATORY DATA: WBC 12.5, hemoglobin 13.8, platelets 331. Chemistries: Sodium is 140, potassium 4.3, chloride 106, bicarb 25, BUN 14, creatinine 0.96, glucose 96. Calcium is 8.4. Magnesium is 2.0. Ferritin slightly trending up to 729. AST increased at 99, ALT increasing to 111, alk phos 71. BNP 127. Albumin is 2.6. Procalcitonin 0.07. Fibrinogen was 495. INR, PT and PTT within normal limits. Chest x-ray on admission 03-02-20 showed very small patchy infiltrate in the left base, atelectasis versus pneumonia. There are some mildly increased interstitial markings and low lung volumes noted. ASSESSMENT AND PLAN: Mr. Weinstein is a 54-year-old male with a history of anxiety, depression and obesity who presented with complaints of coughing and worsening dyspnea on exertion. The patient was found to be coronavirus positive and he was also noted on admission to be febrile as well as hypoxic, requiring initially two liters nasal cannula oxygen supplementation. The patient was admitted to our COVID isolation unit for COVID pneumonia. He was initially treated with antibiotics for possible superimposed bacterial pneumonia. He was also given dexamethasone given his hypoxic respiratory failure. His CRP and ferritin were mildly elevated on admission. The patient was doing well initially for the first three to four days of his admission. Yesterday, however, he started having increasing oxygen requirements and is now on 12 liters of nasal cannula oxygen supplementation. The patient has been reporting dyspnea with minimal exertion as well as continued chest pain in the midsternal region which is worse with exertion as well as with deep inspiration and coughing. He admits he has not been using his incentive spirometer and has been bed-bound mostly during his admission. Acute hypoxic respiratory failure: The patient does have coronavirus pneumonia. There is concern that he may be developing progression although he is not having significantly worsened CRP or ferritin. Suspect with his symptoms patient is having a component of splinting and atelectasis given his chest discomfort which is causing worsening hypoxia. He does have obesity which is also likely contributing to his atelectasis and hypoxemia. There is concern for possible PE as he is prothrombotic. He does not have lower extremity edema, however, or calf tenderness and he has not been tachycardic - Would repeat D-dimer and if very significantly elevated, would consider empiric anticoagulation. In the meantime given his obesity and prothrombotic state, would increase his prophylactic dose of Lovenox to 40 mg b.i.d. for the 0.5 mg/kg b.i.d. prophylactic dosing. - will also check troponins although acute coronary event is less likely. Cardiac complications are possible with coronavirus. will started the patient on low dose aspirin 81 mg as there are no contraindications - We will also repeat chest x-ray and will get an ABG. If the patient does have significant hypercarbia then he may require noninvasive positive pressure ventilation. His goals of care were updated today and he did have a MOLST form which states he is a DNR/DNI but he is willing to have a trial of noninvasive ventilation if needed. - We will start patient on pain medications with Percocet to help encourage increased use of his incentive spirometer. We also discussed with the patient about awake pronation and the protocol for awake proning with one hour prone and two hour supine for 6-8 cycles during the day while awake as tolerated. - We will continue with the high flow nasal cannula supplementation. We will start saline nasal spray and continue with the bulb humidifier to help with humidification. If he is requiring increasing amounts of oxygen supplementation, we would consider Vapotherm for humidification with improved comfort. We will continue to wean down his nasal cannula oxygen supplementation as tolerated. - Would continue patient with steroids. We will change him from dexamethasone to hydrocortisone. Would continue with remdesivir as well. Could consider adding tocilizumab if he does appear to have worsening cytokine storm. However, as of now, his ferritin is only mildly increased and CRP is improving. We will check a repeat CRP, however, as well and continue to monitor. - We will continue patient with bronchodilators with albuterol HFA q.4 hours schedule down. The patient may also benefit from Mucinex as well for pulmonary toilet as he does feel that he has some mucus that is difficult to expectorate at times. We will continue to monitor, however, and consider starting Mucinex if needed. - We will continue monitoring his LFTs while on remdesivir. He did have some slight increase which may be expected with the transaminitis. We will continue for now, though. However, we will continue to closely monitor his LFTs. DVT PROPHYLAXIS: Lovenox.. CODE STATUS: DNR/DNI with a trial of noninvasive ventilation. Continue isolation for coronavirus. MTDD
[2020-03-08 07:22] LABS: BLOOD UREA NITROGEN 20 MG/DL (7-18); C REACTIVE PROTEIN QUANTITATIV 1.19 MG/DL (0.00-0.30); CALCIUM LEVEL 8.4 MG/DL (8.5-10.1); CARBON DIOXIDE LEVEL 27 MEQ/L (21-32); CHLORIDE LEVEL 105 MEQ/L (98-107); CREATININE FOR GFR 0.97 MG/DL (0.70-1.30); GLOMERULAR FILTRATION RATE > 60.0 (>56); GLUCOSE, FASTING 124 MG/DL (70-100); POTASSIUM SERUM 4.6 MEQ/L (3.5-5.1); SODIUM LEVEL 138 MEQ/L (136-145)
--- NOTE | 2020-03-08 07:24 | IPNPDOC ---
Text Note Date of Service The patient was seen on 03/08/20. NOTE Subjective: Patient was seen and examined this morning at bedside. Tells me he's feeling much better than yesterday and Percocet is helping and he's been able to use the incentive spirometer much more frequently today. He's been trying to walk on his room but does still get short of breath when he tries to. Nurse tells me there was no overnight events. Objective: Constitutional: Awake and alert, in no apparent distress. On 4L o2 by [place] ENT: Sclera are clear Respiratory: Lungs diminished breath sounds bilaterally a little less diminished in yesterday no appreciable crackles today. No respiratory distress. No use of accessory muscles. Cardiovascular: RRR S1 and S2 are normal, no murmur Gastrointestinal: Abdomen is soft, non distended, non tender, BS present. Musculoskeletal: RUE 5/5, LUE 5/5, BLE 5/5 no lower extremity edema Neurologic: No focal neurological deficit. Mental Status: A&O x3, normal affect Skin: Warm, dry Assessment/plan: 54 years old M with past medical history of anxiety and depression who presented hospital with increased shortness of breath over 5-6 days with a cough with generalized weakness and found to have COVID19 PNA. # COIVD 19 PNA: sepsis on admission in the setting of covid pna. Rocephin & Azithromycin completed 5 day course last dose 03/07/2020. Per Rona newton switched dexamethasone to hydrocortisone 50mg q8h and can be switched to oral prednisone 40 mg daily to complete a 10 day total course upon discharge. On therapeutic Lovenox 40 BID. remdesevir 200 loading dose then 100qd for 5 day. Inflammatory markers stable or decreased. IV lasix pushes PRN to keep him on milk drier side. Albuterol scheduled. # Acute hypoxic respiratory failure: O2 sat 84% on admission with increasing oxygen demands. Continuous pulse ox. Pulmonology consulted. Incentive spirometry. Percocet helping to encourage use of incentive spirometer. On 4 L oxygen by nasal cannula. Disposition: Anticipate patient would be ready to go home in the coming days as long as his oxygen demands do not exceed 5 L of oxygen. We'll need to have home oxygen arranged for him. [facility] Praveen JIMÉNEZ, I+O VS, Fishbone, I+O Laboratory Tests 03/07/20 11:14 03/08/20 06:46 Vital Signs Date Time Temp Pulse Resp B/P (MAP) Pulse Ox O2 Delivery O2 Flow Rate FiO2 03/08/20 04:00 94 High Flow Cannula 6.0 03/08/20 01:27 96.3 53 15 108/70 (83) 03/06/20 09:00 50 I&O- Last 24 Hours up to 6 AM 03/08/20 06:00 Intake Total 1825 ml Output Total 2500 ml Balance -675 ml JAIR COLES MD Mar 08, 2020 07:24
[2020-03-08 08:54] LABS: ALBUMIN 2.7 GM/DL (3.2-5.2); ALT/SGPT 184 U/L (12-78); BILIRUBIN,DIRECT < 0.1 MG/DL (0.0-0.2); BILIRUBIN,TOTAL 0.4 MG/DL (0.2-1.0); TOTAL PROTEIN 6.6 GM/DL (6.4-8.2)
[2020-03-08] MEDS: ASPIRIN 81 MG ENTERIC TAB PO SCH (08:56)
[2020-03-08] MEDS: CALCIUM CARBONATE 500 MG CHEW U/D PO PRN (08:56)
[2020-03-08] MEDS: PERCOCET 5MG/325MG TAB PO PRN ×2 (08:57→18:36)
[2020-03-08] MEDS: ENOXAPARIN 40MG/0.4ML SYRINGE (J1650 PER 10MG) SC SCH (08:58)
[2020-03-08 09:00] VITALS: BP 101/55
--- NOTE | 2020-03-08 14:51 | IPN ---
DATE: 03/08/2020 Patient was seen and examined this morning during bedside rounds. Yesterday, patient was able to be weaned down from his nasal cannula oxygen supplementation at 12 liters/minute down to a low of 3 liters/minute. He did notice improvement with the Percocet in his chest pain and he was able to take deeper breaths with the incentive spirometer as well as able to cough up some mucus which he previously was unable to do due to the pain. He does continue to have shortness of breath particularly with limited exertion but he states in general he is feeling somewhat better today. Overnight, he did have increased nasal cannula oxygen supplementation up to 6 liters/minute. This morning, on room air he was saturating 86-88%. With talking, however, he did desaturate to around 83% on room air. He has not had any fevers overnight. He denies any abdominal pain, no nausea or vomiting, no lower extremity edema. PHYSICAL EXAMINATION: Vital signs: Temperature 96.3, pulse 53, respirations 15, blood pressure 108/70, oxygen saturation 93-97% on 4-6 liters/minute nasal cannula. Intake 1.6 liters, output 2.3 liters, net negative 640 mL. General: Patient is lying in bed, does not appear to be in any acute distress, is able to speak in complete sentences and is not using any accessory muscles for respiration. HEENT: Normocephalic, atraumatic. Pupils reactive to light bilaterally. There is moist mucous membranes noted. Mallampati is class IV. Neck is supple. Trachea is midline. There is no palpable cervical adenopathy, no jugular venous distension (JVD). Cardiovascular: Regular rate and rhythm, normal S1, S2, unable to appreciate any murmurs. Pulmonary: Diminished breath sounds bilaterally with few crackles in the bases. No wheezing or rhonchi. Abdomen: Obese, soft, nontender, nondistended, no palpable hepatomegaly. Extremities: There is no lower extremity edema noted bilaterally. LABORATORIES: WBC 13.0, hemoglobin 13.9, platelets 381. Chemistry: Sodium 138, potassium 4.6, chloride 105, bicarbonate 27, BUN 20, creatinine 0.97, glucose 124, calcium 8.4. AST/ALT yesterday was 142 and 228. CRP trending down to 1.19. D-dimer trending down to 494.79. ABG yesterday, pH 7.458, pCO2 of 30.3, pO2 of 62.6. Procalcitonin the other day was 0.07. IMAGING: Chest x-ray yesterday showed mild bilateral subtle reticular nodular and interstitial infiltrates which appear relatively unchanged from previous. There is no focal consolidation. There is no evidence of obvious pleural effusion. There is improved inspiratory effort. ASSESSMENT AND PLAN: Mr. Weinstein is a 54-year-old male with a past medical history of anxiety and depression who presented with complaints of worsening dyspnea as well as cough. Patient was found to be positive for Coronavirus and he was hypoxic on admission requiring nasal cannula oxygen supplementation. Patient was admitted for COVID pneumonia to our COVID isolation unit. He was initially given antibiotics for possible bacterial pneumonia as well as steroids for his acute hypoxemic respiratory failure. Patient was noted to have increasing oxygen requirements a few days after his admission and was therefore started on Remdesivir as well. Yesterday, patient was seen and had been complaining of chest discomfort worse with deep inspiration as well as coughing and he admittedly had not been using his incentive spirometer and had been mostly bed bound. Patient was given pain control and incentive spirometer as well as awake proning and had improvement in his oxygenation. Acute hypoxemic respiratory failure. Patient does have Coronavirus pneumonia. His worsening hypoxia however is thought to be in the setting of splinting and atelectasis in the setting of his chest pain. He did have a repeat chest x-ray done which, as per the radiologist, had showed some mildly increased interstitial reticular nodular opacities bilaterally although this is very subtle and does not appear significantly worsened from his admission. Patient also had repeat brain natriuretic peptide (BNP) checked and does not appear to be significantly elevated and so pulmonary edema is also less likely. He did also have an arterial blood gas (ABG) done which did not show any significant hypercarbia. He also had a repeat D-dimer done which has been trending down and acute pulmonary embolus (PE) is less likely. With pain control and using incentive spirometer as well as awake proning he has had improvement in his oxygenation and he has been able to wean down on his nasal cannula supplementation. - Will continue pain control with Percocet as needed. Continue to encourage patient to use his incentive spirometer and the awake proning as previously instructed. - Patient has been on ceftriaxone and azithromycin since his admission. His repeat procalcitonin is negative and he has completed at least 5 days of antibiotics. Therefore, would discontinue antibiotics at this time. - Will continue with steroids with hydrocortisone. Can consider transitioning to by mouth prednisone when patient is close to discharge. Would treat for a 10 day course. - Patients inflammatory markers appear to be improving in terms of his C- reactive protein (CPR) as well as his D-dimer. His ferritin is still elevated and slightly increased, however he has been afebrile and suspect in general he is improving. He is on Remdesivir and he does have some increased transaminitis. Would closely monitor and consider discontinuing Remdesivir if he has worsening transaminitis. In either case, the course of treatment would be 5 days for the Remdesivir. - Will continue weaning patient down on nasal cannula oxygen supplementation. He likely will need increased supplementation with exertion but we did discuss if he is able to be weaned down to an acceptable level then he can potentially go home with oxygen supplementation and with isolation. - Continue with bronchodilators every 4 hours. Deep venous thrombosis (DVT) prophylaxis. Lovenox prophylaxis with the twice a day dosage. CODE STATUS: DO NOT RESUSCITATE/DO NOT INTUBATE with a trial of noninvasive ventilation. Please do not hesitate to call with any further questions or concerns. MTDD
[2020-03-08 15:00] VITALS: BP 113/62
[2020-03-08] MEDS ORDERED: PERCOCET PO (16:56)
[2020-03-08] MEDS ORDERED: VENTAER INH (16:56)
[2020-03-08] MEDS ORDERED: ACET1TAB55 PO (16:56)
[2020-03-08] MEDS ORDERED: ASPI81TAEC PO (16:56)
--- NOTE | 2020-03-08 17:07 | DS.PDOC ---
Discharge Summary General Date of Admission Mar 02, 2020 at 23:07 Date of Discharge 03/08/2020 Discharge Summary PROCEDURES PERFORMED DURING STAY: [None]. ADMITTING DIAGNOSES: 1. Tortoise of breath DISCHARGE DIAGNOSES: 1. sepsis on admission in the setting of covid pna 2. Acute hypoxic respiratory failure COMPLICATIONS/CHIEF COMPLAINT: Covid-19, Leftlower Lobe Pulmonary Infiltrate. HISTORY OF PRESENT ILLNESS: HPI from H&P: HOSPITAL COURSE: 54 years old M with past medical history of anxiety and d epression who presented hospital with increased shortness of breath over 5-6 days with a cough with generalized weakness and found to have COVID19 PNA. On 03/08/2020 patient decided to leave AGAINST MEDICAL ADVICE. # COIVD 19 PNA: sepsis on admission in the setting of covid pna. Rocephin & Azithromycin completed 5 day course last dose 03/07/2020. Per Rona reclamine switched dexamethasone to hydrocortisone 50mg q8h was switched to oral prednisone 40 mg daily to complete a 10 day total course upon discharge. On therapeutic Lovenox 40 BID until day of discharge. remdesevir 200 loading dose then 100qd completed 3 days but given elevated LFTs will be unable to continue this upon discharge discussed this with pulmonology. Inflammatory markers stable or decreased. IV lasix pushes PRN to keep him on grain drier side. Albuterol scheduled. # Acute hypoxic respiratory failure: O2 sat 84% on admission with increasing oxygen demands. Continuous pulse ox. Pulmonology consulted. Incentive spirometry. Percocet helping to encourage use of incentive spirometer. On 4 L oxygen by nasal cannula. Arranged to have patient obtain home oxygen when he leaves DISCHARGE MEDICATIONS: Please see below. ALLERGIES: Please see below. PHYSICAL EXAMINATION ON DISCHARGE: VITAL SIGNS: Please see below. Constitutional: Awake and alert, in no apparent distress. On 4L o2 by [place] ENT: Sclera are clear Respiratory: Lungs diminished breath sounds bilaterally a little less diminished in yesterday no appreciable crackles today. No respiratory distress. No use of accessory muscles. Cardiovascular: RRR S1 and S2 are normal, no murmur Gastrointestinal: Abdomen is soft, non distended, non tender, BS present. Musculoskeletal: RUE 5/5, LUE 5/5, BLE 5/5 no lower extremity edema Neurologic: No focal neurological deficit. Mental Status: A&O x3, normal affect Skin: Warm, dry LABORATORY DATA: Please see below. PROGNOSIS: Poor ACTIVITY: [As tolerated]. DIET: Regular DISPOSITION: Patient left AGAINST MEDICAL ADVICE DISCHARGE INSTRUCTIONS: Please follow up with your primary care physician within 1 week from discharge. If you do not have one, please follow up with us to schedule an appointment. Please keep all of your follow up appointments. Please call central to book your appointments with hospital specialists. Please take all your medications as prescribed. Please call/come to Clinic or go to the Emergency Department if - Temp >101, intractable Nausea/Vomiting, Diarrhea, Mouth sores, Headaches, Altered mental status, Seizures, sudden onset of swelling, bleeding, shortness of breath or chest pain. Discussed quarantine requirements per CDC recommendations for 14 days ITEMS TO FOLLOWUP ON ON OUTPATIENT: quarantine requirements per CDC recommendations for 14 days Complete your course of prednisone at home DISCHARGE CONDITION: [Stable]. TIME SPENT ON DISCHARGE: 50 minutes. Vital Signs/I&Os Vital Signs Date Time Temp Pulse Resp B/P (MAP) Pulse Ox O2 Delivery O2 Flow Rate FiO2 03/08/20 15:00 98.0 79 20 113/62 (79) 94 High Flow Cannula 8.0 03/06/20 09:00 50 I&O- Last 24 Hours up to 6 AM 03/08/20 06:00 Intake Total 1825 ml Output Total 2500 ml Balance -675 ml Laboratory Data Labs 24H Laboratory Tests 2 03/08/20 06:46: Nucleated Red Blood Cells % (auto) 0.0, D-Dimer, Quantitative 494.79, Anion Gap 6L, Glomerular Filtration Rate > 60.0, Calcium Level 8.4L, Total Bilirubin 0.4, Direct Bilirubin < 0.1, Aspartate Amino Transf (AST/SGOT) 58H, Alanine Aminotransferase (ALT/SGPT) 184H, Alkaline Phosphatase 84, C-Reactive Protein, Quantitative 1.19H, Total Protein 6.6, Albumin 2.7L, Albumin/Globulin Ratio 0.7 03/08/20 10:14: Lab Scanned Report Miscellaneous Lab CBC/BMP Laboratory Tests 03/08/20 06:46 Microbiology Microbiology 03/03/20 Blood Culture - Final, Complete NO GROWTH AFTER 5 DAYS 03/02/20 Respiratory Virus Panel (PCR) ([facility]) - Final, Complete SARS-CoV-2 (COVID 19) 03/02/20 Blood Culture - Final, Complete NO GROWTH AFTER 5 DAYS Discharge Medications Scheduled Amitriptyline HCl (Amitriptyline HCl) 75 Mg Tab, 75 MG PO QPM, (Reported) Aspirin (Aspirin EC) 81 Mg Tablet.dr, 81 MG PO DAILY Scheduled PRN Acetaminophen (Acetaminophen) 325 Mg Tablet, 650 MG PO Q6HP PRN for PAIN / FEVER Albuterol Sulfate (Ventolin Hfa) 18 Gm Hfa.aer.ad, 2 PUFF INH RQ4H PRN for DYSPNEA Allergies Coded Allergies: No Known Allergies (Unverified , 03/02/20) JAIR COLES MD Mar 08, 2020 17:07
== END 2020-03-08 19:36 | disposition left against medical advice (07) | DRG 720 ==
LOC: M ED 18:04 → M ED INP 23:07 → EEVIPCON 23:07 → M 4MAIN 03-03 01:41
PROVIDERS: ADMIT Internal Medicine; ATTEND Internal Medicine
DX: A41.9 Sepsis, unspecified organism (principal); J96.01 Acute respiratory failure with hypoxia; U07.1 COVID-19; J12.81 Pneumonia due to SARS-associated coronavirus; F41.9 Anxiety disorder, unspecified; F32.9 Major depressive disorder, single episode, unspecified; Z79.899 Other long term (current) drug therapy; Z79.82 Long term (current) use of aspirin; Z66 Do not resuscitate